=== PATIENT | male | born 1995 | race Two or more races ===

== ENCOUNTER 2024-02-03 19:33 | Emergency (ER) | payer OTHER ==
[~2024-02-03] VITALS: Ht 167.6 cm; Wt 85.3 kg
[2024-02-03 19:53] VITALS: BP 133/74; TEMP 98
[2024-02-03 21:33] VITALS: O2SAT 99
== END 2024-02-03 21:34 | disposition home or self-care (01) ==
LOC: ER 19:43
DX: M79.645 Pain in left finger(s) (principal); X50.1XXA Overexertion from prolonged static or awkward postures, initial encounter; Y93.89 Activity, other specified; Y92.89 Other specified places as the place of occurrence of the external cause; Y99.8 Other external cause status